=== PATIENT | male | born 1990 | race Caucasian/White ===

== ENCOUNTER 2017-11-27 09:16 | Emergency (ER) | payer SELFPAY ==
[2017-11-27 09:29] VITALS: BP 121/72
--- NOTE | 2017-11-27 09:42 | UC ---
Skin Complaint HPI - HPI Summary HPI Summary: WOKE UP 3-4 DAYS AGO WITH REDNESS AND SWELLING AROUND BOTH EYES. NO TRAUMA. FEELS IRRITATED AND ACHY. HAS SOME SENSITIVITY TO LIGHT BUT NO OTHER VISUAL DISTURBANCES. DENIES RASHES ANYWHERE ELSE. NO MUSCLE SORENESS OR FATIGUE. - History of Current Complaint Chief Complaint: UCEye Time Seen by Provider: 11/27/17 09:33 Stated Complaint: EYE COMPLAINT Hx Obtained From: Patient Onset/Duration: Sudden Onset, Lasting Days, Still Present Timing: Constant Onset Severity: Moderate Current Severity: Moderate Pain Intensity: 4 Pain Scale Used: 0-10 Numeric Location: Other - [place] [facility] BILATER[facility] Character: Redness, Painful Aggravating Factor(s): Touch Alleviating Factor(s): Nothing - Allergy/Home Medications Allergies/Adverse Reactions: Allergies Allergy/AdvReac Type Severity Reaction Status Date / Time No Known Allergies Allergy Verified 11/27/17 09:24 Review of Systems Constitutional: Negative Skin: Rash Eyes: Photophobia Respiratory: Negative Cardiovascular: Negative Gastrointestinal: Negative Neurological: Negative All Other Systems Reviewed And Are Negative: Yes PMH/Surg Hx/FS Hx/Imm Hx Previously Healthy: Yes - Surgical History Surgical History: None - Family History Known Family History: Positive: Unknown - PT ADOPTED - Social History Alcohol Use: Rare Substance Use Type: None Smoking Status (MU): Light Every Day Tobacco Smoker Physical Exam Triage Information Reviewed: Yes Appearance: Well-Appearing, No Pain Distress, Well-Nourished Vital Signs: Initial Vital Signs Temp 97.5 F 11/27/17 09:24 Pulse 93 11/27/17 09:24 Resp 16 11/27/17 09:24 BP 121/72 11/27/17 09:24 Pulse Ox 100 11/27/17 09:24 Vital Signs Reviewed: Yes Eyes: Positive: Conjunctiva Clear ENT: Positive: Hearing grossly normal Neck: Positive: Supple, Nontender, No Lymphadenopathy Respiratory Exam: Normal Cardiovascular Exam: Normal Abdomen Description: Positive: Soft Musculoskeletal: Positive: ROM Intact, No Edema Neurological: Positive: Alert Psychological: Positive: Age Appropriate Behavior Skin: Positive: rashes - PURPLISH RASH AROUND BOTH EYES. SKIN FLAKY. SLIGHTLY EDEMATOUS Course/Dx - Course Course Of Treatment: POSSIBLE HELIOTROPE RASH. CONSIDER ALLERGY. TX WITH PREDNISONE AND OTC HYDROCORTISONE SPARINGLY. TAKE OTC ANTIHISTAMINE. FOLLOW-UP WITH PCP FOR FURTHER EVALUATION. - Diagnoses Provider Diagnoses: PERIORBITAL DERMATITIS Discharge - Sign-Out/Discharge Documenting (check all that apply): Patient Departure All imaging exams completed and their final reports reviewed: No Studies - Discharge Plan Condition: Stable Disposition: HOME Prescriptions: predniSONE TAB* [Deltasone TAB*] 50 mg PO DAILY #5 tab Patient Education Materials: Dermatitis (ED) Forms: *Work Release Referrals: Raz Davenport MD [Primary Care Provider] - 1 Week Additional Instructions: YOUR RASH MAY SIMPLY BE AN ALLERGIC RESPONSE. TAKE THE PREDNISONE DAILY. GET OTC HYDROCORTISONE CREAM AND APPLY A THIN LAYER SPARINGLY TO YOUR RASH. BE CAUTIOUS AROUND THE EYES IS YOU DO NOT WANT STEROID CREAM GOING INTO THE EYES. WASH YOUR HANDS AFTER APPLICATION. USE A DAILY HYPOALLERGENIC FACIAL MOISTURIZER. COOL COMPRESSES FOR SYMPTOM RELIEF. TRY TAKING AN OTC ANTIHISTAMINE SUCH CLARITIN OR ZYRTEC DAILY WELL. CONCERN THAT THE RASH IS A MANIFESTATION OF A POSSIBLE UNDERLYING DISORDER. FOLLOW-UP WITH YOUR PCP WITHIN THE NEXT 1-2 WEEKS FOR FURTHER EVALUATION. I WOULD RECOMMEND BASIC BLOOD WORK INCLUDING A BLOOD COUNT, METABOLIC PANEL AND POSSIBLY PRELIMINARY LABS TO LOOK FOR AUTOIMMUNE DISEASE AND DERMATOMYOSITIS. BE VIGILANT FOR ANY OTHER SYMPTOMS SUCH MUSCLE WEAKNESS, FATIGUE AND RASHES ON OTHER PARTS OF YOUR BODY INCLUDING THE BACKS OF YOUR HANDS AND YOUR UPPER BACK. - Billing Disposition and Condition Condition: STABLE Disposition: Home
== END 2017-11-27 10:30 | disposition home or self-care (01) ==
LOC: UCEAST 09:16
DX: L30.9 Dermatitis, unspecified (principal); F17.200 Nicotine dependence, unspecified, uncomplicated
CPT/HCPCS: 99212; G0463